=== PATIENT | male | born 1985 | race Caucasian/White ===

== ENCOUNTER 2021-06-17 18:37 | Inpatient (IN) | payer SELFPAY ==
[~2021-06-17] VITALS: Ht 182.9 cm; Wt 91.2 kg
[2021-06-17] MEDS ORDERED: IPRATROPIUM BROMIDE (0.02%) 0.5MG/2.5ML NEB HHN STA (19:05)
[2021-06-17] MEDS ORDERED: ALBUTEROL (0.083%) 2.5MG/3ML NEB HHN STA (19:05)
[2021-06-17] MEDS ORDERED: DEXAMETHASONE 4MG/ML 1ML VIAL IM SCH (19:15)
[2021-06-17] MEDS ORDERED: AZITHROMYCIN 500 MG in DEXT 5% WATER 250 ML IV SCH (19:15)
[2021-06-17] MEDS ORDERED: CEFTRIAXONE 1 G PREMIX 50 ML IV ONE (19:15)
[2021-06-17 19:53] LABS: BASOPHILS % 0.2 % (0.0-2.0); EOSINOPHILS % 0.1 % (0.0-5.0); HEMATOCRIT. 46.1 % (42.0-52.0); HEMOGLOBIN. 15.9 g/dL (14.0-18.0); LYMPHOCYTES % 8.9 % (20.0-50.0); MEAN CORPUSCULAR HEMOGLOBIN 30.9 pg (28.0-32.0); MEAN CORPUSCULAR VOLUME 89.7 fL (80.0-94.0); MEAN PLATELET VOLUME 8.3 fl (7.4-10.4); MONOCYTES % 5.6 % (2.0-8.0); NEUTROPHILS % 85.2 % (40.0-76.0); PLATELET 232 x1000/uL (130-400); RED BLOOD CELL COUNT 5.13 mill/uL (4.7-6.1); RED CELL DISTRIBUTION WIDTH 13.7 % (11.6-14.6)
[2021-06-17 20:01] LABS: CHLORIDE 106 mEq/L (98-107)
[2021-06-18] MEDS ORDERED: ONDANSETRON HCL 4MG/2ML INJ IV PRN (01:15)
[2021-06-18] MEDS ORDERED: ACETAMINOPHEN 325MG TABLET PO PRN ×2 (01:15)
[2021-06-18] MEDS: ALBUTEROL 6.7GM HFA INHALER ORI SCH ×6 (04:00→21:15)
[2021-06-18] MEDS: DEXAMETHASONE 4MG/ML 1ML VIAL IV SCH (04:20)
[2021-06-18] MEDS: ENOXAPARIN 40MG/0.4ML SYR SUBCUT SCH (09:17)
[2021-06-18 12:00] VITALS: BP 117/75
[2021-06-18 12:16] VITALS: BP 117/75
[2021-06-18] MEDS: AZITHROMYCIN 500 MG in DEXT 5% WATER 250 ML IV SCH (18:31)
[2021-06-18] MEDS: CEFTRIAXONE 1,000 MG in DEXTROSE 5% WATER 50 ML IV SCH (18:32)
[2021-06-18 20:00] VITALS: BP 126/72
[2021-06-18] MEDS ORDERED: AZITHROMYCIN 500 MG in DEXT 5% WATER 250 ML IV SCH (20:00)
[2021-06-18] MEDS ORDERED: CEFTRIAXONE 1,000 MG in DEXTROSE 5% WATER 50 ML IV SCH (21:00)
[2021-06-19] VITALS: BP 124/86
[2021-06-19] MEDS: DEXAMETHASONE 4MG/ML 1ML VIAL IV SCH (01:35)
[2021-06-19] MEDS: ALBUTEROL 6.7GM HFA INHALER ORI SCH ×6 (01:36→20:12)
[2021-06-19 04:00] VITALS: BP 113/66
[2021-06-19 08:00] VITALS: BP 104/54
[2021-06-19] MEDS: ENOXAPARIN 40MG/0.4ML SYR SUBCUT SCH (08:02)
[2021-06-19 12:02] VITALS: BP 111/67
[2021-06-19] MEDS: CEFTRIAXONE 1,000 MG in DEXTROSE 5% WATER 50 ML IV SCH (17:11)
[2021-06-19] MEDS: AZITHROMYCIN 500 MG in DEXT 5% WATER 250 ML IV SCH (17:12)
[2021-06-19 19:16] LABS: BASOPHILS % 0.1 % (0.0-2.0); EOSINOPHILS % 0.2 % (0.0-5.0); HEMATOCRIT. 49.5 % (42.0-52.0); HEMOGLOBIN. 16.7 g/dL (14.0-18.0); LYMPHOCYTES % 13.9 % (20.0-50.0); MEAN CORPUSCULAR HEMOGLOBIN 30.6 pg (28.0-32.0); MEAN CORPUSCULAR VOLUME 90.6 fL (80.0-94.0); MEAN PLATELET VOLUME 8.9 fl (7.4-10.4); NEUTROPHILS % 78.8 % (40.0-76.0); PLATELET 352 x1000/uL (130-400); RED BLOOD CELL COUNT 5.46 mill/uL (4.7-6.1); RED CELL DISTRIBUTION WIDTH 13.9 % (11.6-14.6)
[2021-06-19 19:24] LABS: CHLORIDE 106 mEq/L (98-107)
[2021-06-19 19:32] LABS: PHOSPHORUS 3.6 mg/dL (2.5-4.9)
[2021-06-19 20:00] VITALS: BP 110/60
[2021-06-20] VITALS (7 sets, daily range): BP systolic 102–120; BP diastolic 52–74
[2021-06-20] MEDS: ALBUTEROL 6.7GM HFA INHALER ORI SCH ×6 (00:50→20:00)
[2021-06-20] MEDS: DEXAMETHASONE 4MG/ML 1ML VIAL IV SCH (02:28)
[2021-06-20 08:32] LABS: BASOPHILS % 0.1 % (0.0-2.0); EOSINOPHILS % 0.1 % (0.0-5.0); HEMATOCRIT. 48.2 % (42.0-52.0); HEMOGLOBIN. 16.1 g/dL (14.0-18.0); LYMPHOCYTES % 10.4 % (20.0-50.0); MEAN CORPUSCULAR HEMOGLOBIN 30.6 pg (28.0-32.0); MEAN CORPUSCULAR VOLUME 91.4 fL (80.0-94.0); MONOCYTES % 4.9 % (2.0-8.0); NEUTROPHILS % 84.5 % (40.0-76.0); PLATELET 349 x1000/uL (130-400); RED BLOOD CELL COUNT 5.27 mill/uL (4.7-6.1); RED CELL DISTRIBUTION WIDTH 13.5 % (11.6-14.6)
[2021-06-20 09:00] LABS: CHLORIDE 105 mEq/L (98-107)
[2021-06-20 09:09] LABS: PHOSPHORUS 3.1 mg/dL (2.5-4.9)
[2021-06-20] MEDS: ENOXAPARIN 40MG/0.4ML SYR SUBCUT SCH (09:36)
[2021-06-20] MEDS: CEFTRIAXONE 1,000 MG in DEXTROSE 5% WATER 50 ML IV SCH (16:57)
[2021-06-20] MEDS: GUAIFENESIN-DM 200MG-20MG/10ML UDC PO PRN (17:17)
[2021-06-20] MEDS: AZITHROMYCIN 500 MG in DEXT 5% WATER 250 ML IV SCH (18:17)
[2021-06-21] MEDS: ALBUTEROL 6.7GM HFA INHALER ORI SCH ×6 (00:42→22:57)
[2021-06-21] MEDS: DEXAMETHASONE 4MG/ML 1ML VIAL IV SCH (00:45)
[2021-06-21 04:00] VITALS: BP 100/49
[2021-06-21 06:07] LABS: BASOPHILS % 0.1 % (0.0-2.0); EOSINOPHILS % 0.3 % (0.0-5.0); HEMATOCRIT. 50.8 % (42.0-52.0); HEMOGLOBIN. 16.9 g/dL (14.0-18.0); LYMPHOCYTES % 10.7 % (20.0-50.0); MEAN CORPUSCULAR HEMOGLOBIN 30.5 pg (28.0-32.0); MEAN CORPUSCULAR VOLUME 91.4 fL (80.0-94.0); MEAN PLATELET VOLUME 8.5 fl (7.4-10.4); MONOCYTES % 4.9 % (2.0-8.0); PLATELET 376 x1000/uL (130-400); RED BLOOD CELL COUNT 5.56 mill/uL (4.7-6.1); RED CELL DISTRIBUTION WIDTH 13.6 % (11.6-14.6)
[2021-06-21 06:43] LABS: CHLORIDE 105 mEq/L (98-107)
[2021-06-21 08:00] VITALS: BP 94/52
[2021-06-21] MEDS: GUAIFENESIN-DM 200MG-20MG/10ML UDC PO PRN (08:52)
[2021-06-21] MEDS: ENOXAPARIN 40MG/0.4ML SYR SUBCUT SCH (08:52)
[2021-06-21 12:00] VITALS: BP 96/49
[2021-06-21 16:00] VITALS: BP 106/64
[2021-06-21] MEDS: CEFTRIAXONE 1,000 MG in DEXTROSE 5% WATER 50 ML IV SCH (16:15)
[2021-06-21] MEDS: AZITHROMYCIN 500 MG in DEXT 5% WATER 250 ML IV SCH (17:43)
[2021-06-21 20:00] VITALS: BP 101/57
[2021-06-22] VITALS: BP 107/63
[2021-06-22] MEDS: ALBUTEROL 6.7GM HFA INHALER ORI SCH ×6 (03:50→23:57)
[2021-06-22] MEDS: DEXAMETHASONE 4MG/ML 1ML VIAL IV SCH (03:50)
[2021-06-22 04:00] VITALS: BP 110/61
[2021-06-22 06:51] LABS: CHLORIDE 102 mEq/L (98-107)
[2021-06-22 06:57] LABS: BASOPHILS % 0.1 % (0.0-2.0); EOSINOPHILS % 0.6 % (0.0-5.0); HEMOGLOBIN. 17.1 g/dL (14.0-18.0); LYMPHOCYTES % 13.8 % (20.0-50.0); MEAN CORPUSCULAR HEMOGLOBIN 30.4 pg (28.0-32.0); MEAN CORPUSCULAR VOLUME 90.7 fL (80.0-94.0); MEAN PLATELET VOLUME 8.5 fl (7.4-10.4); MONOCYTES % 7.7 % (2.0-8.0); NEUTROPHILS % 77.8 % (40.0-76.0); PLATELET 393 x1000/uL (130-400); RED BLOOD CELL COUNT 5.62 mill/uL (4.7-6.1); RED CELL DISTRIBUTION WIDTH 13.5 % (11.6-14.6)
[2021-06-22 07:01] LABS: PHOSPHORUS 2.8 mg/dL (2.5-4.9)
[2021-06-22 08:00] VITALS: BP 102/72
[2021-06-22] MEDS: ENOXAPARIN 40MG/0.4ML SYR SUBCUT SCH (08:49)
[2021-06-22 12:00] VITALS: BP 105/59
[2021-06-22] MEDS: CEFTRIAXONE 1,000 MG in DEXTROSE 5% WATER 50 ML IV SCH (15:46)
[2021-06-22 16:00] VITALS: BP 106/62
[2021-06-22] MEDS ORDERED: SODIUM POLYSTYRENE SULFONATE 15 G/60 ML BOT PO SCH (16:00)
[2021-06-22 20:00] VITALS: BP 107/68
[2021-06-23] VITALS: BP 113/50
[2021-06-23] MEDS: DEXAMETHASONE 4MG/ML 1ML VIAL IV SCH (01:46)
[2021-06-23 04:00] VITALS: BP 111/69
[2021-06-23] MEDS: ALBUTEROL 6.7GM HFA INHALER ORI SCH ×3 (04:00→11:18)
[2021-06-23 06:22] LABS: HEMATOCRIT. 49.1 % (42.0-52.0); HEMOGLOBIN. 16.8 g/dL (14.0-18.0); MEAN CORPUSCULAR HEMOGLOBIN 30.8 pg (28.0-32.0); MEAN CORPUSCULAR VOLUME 89.9 fL (80.0-94.0); MEAN PLATELET VOLUME 8.5 fl (7.4-10.4); PLATELET 422 x1000/uL (130-400); RED BLOOD CELL COUNT 5.46 mill/uL (4.7-6.1); RED CELL DISTRIBUTION WIDTH 13.4 % (11.6-14.6)
[2021-06-23 06:31] LABS: CHLORIDE 103 mEq/L (98-107)
[2021-06-23 06:59] LABS: PHOSPHORUS 2.7 mg/dL (2.5-4.9)
[2021-06-23 08:00] VITALS: BP 102/49
[2021-06-23] MEDS: GUAIFENESIN-DM 200MG-20MG/10ML UDC PO PRN (08:29)
[2021-06-23] MEDS: ENOXAPARIN 40MG/0.4ML SYR SUBCUT SCH (08:30)
[2021-06-23 11:57] LABS: PLATELET ESTIMATE INCREASED
[2021-06-23 12:00] VITALS: BP 108/58
[2021-06-23 12:14] VITALS: BP 102/49
== END 2021-06-23 13:10 | disposition home or self-care (01) | DRG 720 ==
LOC: ER 18:37 → MICUSO 06-18 00:03 → SUPCPDRO 06-18 01:00 → 7WST 06-18 10:48
PROVIDERS: ADMIT Internal Medicine; ATTEND Internal Medicine
DX: A41.89 Other specified sepsis (principal); J96.01 Acute respiratory failure with hypoxia; J12.82 Pneumonia due to coronavirus disease 2019; U07.1 COVID-19; E87.5 Hyperkalemia; R74.01 Elevation of levels of liver transaminase levels
CPT/HCPCS: 36415; 71045; 80053; 82728; 83615; 83735; 83880; 84100; 84145; 84484; 85025; 85379; 86140; 86141; 87426; 93970; 94640; 99291; J0456; J0696; J1100; J1650; J7040; J7060